=== PATIENT | male | born 1990 | race Caucasian/White ===

== ENCOUNTER 2017-06-03 04:34 | Emergency (ER) | payer OTHER ==
[~2017-06-03] VITALS: Ht 180.3 cm; Wt 99.8 kg
== END 2017-06-03 20:19 | disposition home or self-care (01) ==
LOC: ER 04:34
DX: M54.89 Other dorsalgia (principal); J03.80 Acute tonsillitis due to other specified organisms; E86.0 Dehydration; R50.9 Fever, unspecified